=== PATIENT | female | born 1965 | race African-American/Black ===

== ENCOUNTER 2017-01-18 09:32 | Observation (INO) | payer MEDICAID ==
[~2017-01-18] VITALS: Ht 165.1 cm; Wt 85.6 kg
[2017-01-18] MEDS ORDERED: HYDROmorphone 1 MG/ML, 1ML ONE (09:59)
[2017-01-18] MEDS ORDERED: PLEASE ENTER ALLERGIES MC SCH ×2 (10:00)
[2017-01-18] MEDS ORDERED: HYDROmorphone 1 MG/ML, 1ML IM ONE (10:00)
[2017-01-18 10:16] LABS: BLOOD UREA NITROGEN 9 mg/dL (7-18)
[2017-01-18] MEDS ORDERED: ONDANSETRON 2MG/ML, 2ML IVPush PRN (12:30)
[2017-01-18] MEDS ORDERED: ENOXAPARIN 40 MG/0.4 ML SQ SCH (12:30)
[2017-01-18 13:27] LABS: C-REACTIVE PROTEIN, QUANT 5.7 mg/dL (0.02-0.49)
[2017-01-18] MEDS: SODIUM CHLORIDE 0.9% 1,000 ML IV SCH (13:54)
[2017-01-18 14:00] VITALS: BP 169/99
[2017-01-18] MEDS ORDERED: HYDR-3144 PO (15:00)
[2017-01-18] MEDS ORDERED: GABA600T2 PO (15:00)
[2017-01-18] MEDS ORDERED: METF500T4 PO (15:00)
[2017-01-18] MEDS ORDERED: LISI-170 PO (15:00)
[2017-01-18 15:01] VITALS: BP 169/99
[2017-01-18] MEDS: HYDROcodone/APAP 10/325 MG TABLET PO SCH ×2 (15:57→20:58)
[2017-01-18] MEDS: GABAPENTIN 300 MG CAPSULE PO SCH ×2 (16:26→20:58)
[2017-01-18 18:35] VITALS: BP 168/93
[2017-01-19] MEDS: SODIUM CHLORIDE 0.9% 1,000 ML IV SCH ×2 (00:41→08:50)
[2017-01-19 01:28] VITALS: BP 145/80
[2017-01-19] MEDS: HYDROcodone/APAP 10/325 MG TABLET PO SCH (06:17)
[2017-01-19] MEDS: GABAPENTIN 300 MG CAPSULE PO SCH (06:18)
[2017-01-19 07:06] VITALS: BP 152/82
[2017-01-19] MEDS ORDERED: LISINOPRIL 20 MG TABLET PO SCH (09:00)
[2017-01-19] MEDS ORDERED: METH10TA6 PO (09:38)
[2017-01-19] MEDS ORDERED: METH16TA PO (09:38)
[2017-01-20 20:06] LABS: RA LATEX TURBIDITY 11.6 IU/mL (0.0-13.9)
== END 2017-01-19 12:25 | disposition home or self-care (01) ==
LOC: ED 10:20 → EDIP 12:30 → 3NE 13:39 → DCLOUNGE 01-19 11:49
PROVIDERS: ADMIT Hospitalist; ATTEND Hospitalist
DX: M13.0 Polyarthritis, unspecified (principal); G89.29 Other chronic pain; Z79.891 Long term (current) use of opiate analgesic; E11.9 Type 2 diabetes mellitus without complications; M19.90 Unspecified osteoarthritis, unspecified site; F32.9 Major depressive disorder, single episode, unspecified; I10 Essential (primary) hypertension; F17.210 Nicotine dependence, cigarettes, uncomplicated; Z82.49 Family history of ischemic heart disease and other diseases of the circulatory system; Z83.3 Family history of diabetes mellitus; E05.90 Thyrotoxicosis, unspecified without thyrotoxic crisis or storm
CPT/HCPCS: 36415; 71010; 73030; 73523; 73564; 80048; 82040; 83036; 84439; 84443; 85025; 85651; 86038; 86140; 86160; 86200; 86431; 96360; 96361; 96372; 99285; G0378; J1170; J1650; J7030; J7512

== ENCOUNTER 2017-02-12 02:02 | Emergency (ER) | payer MEDICAID ==
[~2017-02-12] VITALS: Ht 165.1 cm; Wt 86.6 kg
[~2017-02-12 02:02] MED LIST: GABA600T2 PO; HYDR-3144 PO; LISI-170 PO; METF500T4 PO; METH10TA6 PO; METH16TA PO
[2017-02-12] MEDS ORDERED: DIAZEPAM 5 MG TABLET ONE (02:44)
[2017-02-12] MEDS ORDERED: KETOROLAC 30 MG/1 ML ONE (02:45)
[2017-02-12] MEDS ORDERED: DIAZEPAM 5 MG TABLET PO ONE (03:00)
[2017-02-12] MEDS ORDERED: KETOROLAC 30 MG/1 ML IM ONE (03:00)
[2017-02-12 04:06] VITALS: BP 159/79
== END 2017-02-12 04:37 | disposition home or self-care (01) ==
LOC: ED 04:25
DX: S16.1XXA Strain of muscle, fascia and tendon at neck level, initial encounter (principal); S39.012A Strain of muscle, fascia and tendon of lower back, initial encounter; M54.16 Radiculopathy, lumbar region; I10 Essential (primary) hypertension; E11.9 Type 2 diabetes mellitus without complications; W19.XXXA Unspecified fall, initial encounter; Y93.89 Activity, other specified; Y92.89 Other specified places as the place of occurrence of the external cause; Y99.8 Other external cause status
CPT/HCPCS: 72110; 96372; 99284; J1885

== ENCOUNTER 2018-09-21 11:03 | Emergency (ER) | payer MEDICAID ==
[~2018-09-21] VITALS: Ht 165.1 cm; Wt 84.6 kg
[~2018-09-21 11:03] MED LIST changes: -GABA600T2 PO; +GABA600T7 PO; -HYDR-3144 PO; +HYDR-3245 PO; +METF500T17 PO; -METF500T4 PO
--- NOTE | 2018-09-21 11:56 | NUR ---
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
[2018-09-21] MEDS ORDERED: HYDROcodone/APAP 5/325 TABLET ONE (12:51)
[2018-09-21] MEDS ORDERED: SODIUM CHLORIDE FLUSH 10ML SYR IVF ONE (13:00)
[2018-09-21] MEDS ORDERED: HYDROcodone/APAP 5/325 TABLET PO ONE (13:00)
--- NOTE | 2018-09-21 13:00 | NUR ---
PT MEDICATED FOR 8/10 VALLE PER ERP ORDER. PT ALSO C/O CHEST TIGHTNESS WITH COUGH FOR SEVERAL DAYS. PT PLACED ON BP CUFF, PULSE OX, HEART MONITOR. WARM BLANKET PROVIDED, CALL LIGHT WITHIN REACH. VSS/UPDATED IN COMPUTER.
[2018-09-21 13:16] LABS: BASOPHILS # (AUTO) 0.08 x10^3/uL (0-0.1); BASOPHILS % (AUTO) 1 % (0-1); EOSINOPHILS # (AUTO) 0.32 x10^3/uL (0-0.4); EOSINOPHILS % (AUTO) 4 % (1-7); LYMPHOCYTES # (AUTO) 2.84 x10^3/uL (1-3.4); LYMPHOCYTES % (AUTO) 35 % (22-44); MD NO; MEAN CORPUSCULAR HEMOGLOBIN 24.5 pg (27.0-34.8); MEAN CORPUSCULAR HGB CONC 31.5 g/dL (32.4-35.8); MEAN CORPUSCULAR VOLUME 77.7 fL (80-100); MONOCYTES # (AUTO) 0.37 x10^3/uL (0.2-0.8); MONOCYTES % (AUTO) 5 % (2-9); NEUTROPHILS # (AUTO) 4.46 x10^3/uL (1.8-6.8); NEUTROPHILS % (AUTO) 55 % (42-75); PLATELET COUNT 586 x10^3/uL (130-400); RED CELL DISTRIBUTION WIDTH 15.5 % (9.6-15.2)
[2018-09-21 13:26] LABS: ALBUMIN 3.4 g/dL (3.4-5.0); ANION GAP 6 mmol/L (5-15); CALCIUM 9.1 mg/dL (8.5-10.1); CHLORIDE 102 mmol/L (98-107)
[2018-09-21 13:32] LABS: ALANINE AMINOTRANSFERASE 15 U/L (12-78); ALKALINE PHOSPHATASE 165 U/L (45-117); BILIRUBIN,TOTAL 0.5 mg/dL (0.2-1.0); CREATININE 0.79 mg/dL (0.55-1.02); TOTAL PROTEIN 8.7 g/dL (6.4-8.2); TROPONIN I < 0.015 ng/mL (0.000-0.045)
[2018-09-21 13:33] VITALS: BP 162/93
--- NOTE | 2018-09-21 13:43 | NUR ---
ALL RESULTS BACK, PT FOR RECHECK.
== END 2018-09-21 14:46 | disposition home or self-care (01) ==
LOC: ED 13:07
DX: R06.00 Dyspnea, unspecified (principal); J20.9 Acute bronchitis, unspecified; R07.89 Other chest pain; I10 Essential (primary) hypertension; E11.9 Type 2 diabetes mellitus without complications
CPT/HCPCS: 36415; 71045; 80053; 83605; 84484; 85025; 87040; 93005; 99284

== ENCOUNTER 2019-01-15 20:21 | Emergency (ER) | payer MEDICAID ==
[~2019-01-15] VITALS: Ht 165.1 cm; Wt 81.7 kg
[2019-01-15 21:18] LABS: BASOPHILS # (AUTO) 0.03 x10^3/uL (0-0.1); BASOPHILS % (AUTO) 0 % (0-1); EOSINOPHILS # (AUTO) 0.16 x10^3/uL (0-0.4); EOSINOPHILS % (AUTO) 2 % (1-7); LYMPHOCYTES # (AUTO) 2.87 x10^3/uL (1-3.4); LYMPHOCYTES % (AUTO) 39 % (22-44); MD NO; MEAN CORPUSCULAR HEMOGLOBIN 24.8 pg (27.0-34.8); MEAN CORPUSCULAR VOLUME 77.6 fL (80-100); MEAN PLATELET VOLUME 8.2 fL (7.4-10.4); MONOCYTES # (AUTO) 0.55 x10^3/uL (0.2-0.8); MONOCYTES % (AUTO) 8 % (2-9); NEUTROPHILS # (AUTO) 3.72 x10^3/uL (1.8-6.8); NEUTROPHILS % (AUTO) 51 % (42-75); PLATELET COUNT 486 x10^3/uL (130-400); RED BLOOD COUNT 5.25 x10^6/uL (3.82-5.3); RED CELL DISTRIBUTION WIDTH 14.4 % (9.6-15.2)
[2019-01-15 21:27] LABS: ALBUMIN 2.9 g/dL (3.4-5.0); ANION GAP 8 mmol/L (5-15); CALCIUM 8.9 mg/dL (8.5-10.1); CHLORIDE 104 mmol/L (98-107)
[2019-01-15 21:33] LABS: ALANINE AMINOTRANSFERASE 16 U/L (12-78); ALKALINE PHOSPHATASE 146 U/L (45-117); BILIRUBIN,TOTAL 0.3 mg/dL (0.2-1.0); CREATININE 0.75 mg/dL (0.55-1.02); TOTAL PROTEIN 7.5 g/dL (6.4-8.2); TROPONIN I 0.018 ng/mL (0.000-0.045)
--- NOTE | 2019-01-15 23:12 | NUR ---
PT HERE FOR CHEST PAIN THAT STARTED 2 DAYS AGO. PAIN IS RADIATING DOWN RIGHT ARM. PAIN IS BECOMING MORE CONSTANT 03/22. HR AND BP ELEVATED. WAITING TO BE EVALUATED BY MD. CALL LIGHT IN REACH
[2019-01-15] MEDS ORDERED: SODIUM CHLORIDE 0.9% 1,000ML IVBOLUS ONE (23:30)
[2019-01-15] MEDS ORDERED: SODIUM CHLORIDE FLUSH 10ML SYR IVF ONE (23:30)
[2019-01-16] MEDS ORDERED: LORazepam 2 MG/ML, 1ML ONE (00:17)
--- NOTE | 2019-01-16 00:21 | NUR ---
FLUIDS RUNNING AND PT MEDICATED. PT RESTING WITH NO NEEDS AT THIS TIME. CALL LIGHT IN REACH
[2019-01-16] MEDS ORDERED: LORazepam 2 MG/ML, 1ML IVPush ONE (00:30)
--- NOTE | 2019-01-16 00:48 | NUR ---
PT UP TO BATHROOM. IV FLUIDS ALMOST COMPLETE.
--- NOTE | 2019-01-16 01:04 | NUR ---
Patient given discharge instructions and they have confirmed that they understand the instructions. Patient ambulatory with steady gait.
[2019-01-16 01:05] VITALS: BP 138/92
== END 2019-01-16 01:07 | disposition home or self-care (01) ==
LOC: ED 01-16 00:17
DX: R07.89 Other chest pain (principal); E11.65 Type 2 diabetes mellitus with hyperglycemia; I10 Essential (primary) hypertension; M19.90 Unspecified osteoarthritis, unspecified site; G89.29 Other chronic pain; M25.511 Pain in right shoulder; F17.200 Nicotine dependence, unspecified, uncomplicated
CPT/HCPCS: 36415; 71045; 80053; 84484; 85025; 93005; 96361; 96374; 99284; J2060; J7030